=== PATIENT | female | born 1985 | race Caucasian/White ===

== ENCOUNTER → 2017-09-10 | Outpatient (CLI) | payer OTHER ==
--- NOTE | 2017-09-10 17:00 | RAD ---
Thyroid ultrasound, 09/10/2017: HISTORY: Abnormal thyroid tests The right lobe of the gland measures 6.7 x 2.1 x 1.7 cm while the left lobe of the gland measures 5.8 x 1.9 x 1.6 cm. There are numerous bilateral thyroid nodules. The majority of these are predominantly cystic. The largest nodule on the right measures 1.3 x 0.9 x 0.5 cm. Its margins are smooth. It appears predominantly cystic with an internal septation. The largest nodule on the left lies medially and measures 10 mm. It is smooth and cystic in nature. There are numerous other subcentimeter bilateral nodules. No highly suspicious sonographic features are seen. IMPRESSION: Multinodular thyroid gland as described above. Electronically signed by: Omar Santos MD (09/10/2017 4:56 PM) [facility]
== END | disposition home or self-care (01) ==
LOC: US 14:24
PROVIDERS: ATTEND Nurse Practitioner Family
DX: E04.2 Nontoxic multinodular goiter (principal)
CPT/HCPCS: 76536